=== PATIENT | male | born 1970 | race Caucasian/White ===

== ENCOUNTER 2022-01-17 15:17 | Inpatient (IN) ==
[2022-01-17] MEDS ORDERED: SODIUM CHLORIDE 0.9% 1000ML 1,000 ML IV STA (16:04)
--- NOTE | 2022-01-17 16:09 | Emergency Department Note ---
Impression & Plan LLQ abdominal pain, Diverticulitis, Colonic diverticular abscess, Leukocytosis ED Provider Note NAME: ALEM VIZCAINO AGE: 51 SEX: M : 1970 ARRIVES VIA: Walk-In INFORMANT: [Patient] ED PROVIDER(S): [Grzegorz Villalobos MD] CHIEF COMPLAINT: GI assessment HISTORY OF PRESENT ILLNESS: The patient is a 51-year-old male with Crohn's disease. He is currently on mesalamine. Patient has had a few bowel obstructions before that have always cleared without surgery. Over the weekend, he had more to eat than normal and began having some bloating and some left lower quadrant abdominal pain. He has since moved his bowels a little but still feels bloated and still has some mild left lower quadrant pain. He was referred to the ED for further evaluation for the possibility of a small bowel obstruction. There has been no fever, no cough or congestion or shortness of breath. No urinary complaints. REVIEW OF SYSTEMS: See HPI for pertinent positives and negatives. A total of ten systems were reviewed and were otherwise negative. PMHx/PSHx: See Below SOCIAL HISTORY: See Below. PHYSICAL EXAM: GENERAL: Patient is in no acute distress. HEENT: No acute trauma, normocephalic atraumatic, mucous membranes moist, no nasal congestion, no scleral icterus. NECK: No stridor, no adenopathy, no meningismus, trachea is midline. LUNGS: Clear to auscultation bilaterally, no wheeze, no rhonchi, breath sounds equal. HEART: Without murmurs gallops or rubs, regular rate and rhythm. ABDOMEN: Soft, mildly tender in the left lower quadrant, bowel sounds positive, no hernias, no peritonitis. EXTREMITIES: No cyanosis or edema, full range of motion of all the joints without pain or difficulty, no signs for acute trauma. NEUROLOGIC: Oriented x 3, no acute motor or sensory deficits, no focal weakness. SKIN: No rash, no jaundice, no diaphoresis. DIFFERENTIAL DIAGNOSIS: Appendicitis, testicular torsion, diverticulitis, UTI, obstruction, mesenteric ischemia, aortic pathology, inflammatory bowel disease, renal colic, PUD, pancreatitis, biliary pathology, hernia, volvulus, constipation, as well as other pathologies. EMERGENCY DEPARTMENT COURSE/PROCEDURES: MEDICAL DECISION MAKING: There is a mild leukocytosis which could be consistent with infection. A very mild anemia was noted. There was a normal platelet count. No renal failure or significant electrolyte abnormality. No concerning liver enzyme elevation. No evidence for pancreatitis. Abdominal and pelvis CT shows diverticulitis with a small diverticular abscess. No bowel obstruction. No free air. On exam, the patient was tender in the left lower quadrant, he was not toxic or febrile. The patient received IV saline, 1 L. He was given IV Cipro and IV Flagyl. He did not require anything for pain. I spoke with general surgery. Patient requires IV antibiotic therapy and observation. No emergent surgical intervention required. I spoke with the patient and case management. The on-call hospitalist was consulted. Past Med/Surg History Medical History Crohn's disease Social History Smoking Status: Former smoker Preferred Language: American Feels Safe at Home: Yes Allergies Allergies Allergy/AdvReac Type Severity Reaction Status Date / Time Penicillins Allergy ALL Verified 01/17/22 17:28 SIMILAR ANTIBIOTICS--HIVES Home Meds Home Medications Medication Instructions Recorded Confirmed ketoconazole 2 % shampoo 1 applic TOPICAL DIRECTED 01/17/22 01/17/22 mesalamine 1.2 gram tablet,delayed 2.4 g PO DAILY 01/17/22 01/17/22 release sodium chloride 5 % eye drops 1 drp OPHTHALMIC (EYE) DIRECTED 01/17/22 01/17/22 (Ismael 128) Results & Data (ED) Vital Signs Vital Signs - 24 hr 01/17/22 15:25 01/17/22 17:00 Temperature 36.6 C Temperature Source Temporal Artery Scan Pulse Rate 109 H Pulse Rate [Right Finger] 91 H Pulse Rhythm Regular Pulse Rhythm [Right Finger] Regular Pulse Strength Normal Pulse Strength [Right Finger] Normal Respiratory Rate 20 18 Respiratory Effort / Characteristics Non-Labored Spontaneous Non-Labored Respiratory Depth Normal Normal Respiratory Pattern Regular Regular Blood Pressure 162/144 H Blood Pressure [Right Arm] 119/80 Blood Pressure Mean 150 Blood Pressure Mean [Right Arm] 93 Blood Pressure Position Sitting Blood Pressure Position [Right Arm] Lying Pulse Oximetry 97 100 Oxygen Delivery Method Room Air Room Air Sepsis Recent Fever Within 48 Hours No Sepsis New/Unexplained Change in Mental Status No Sepsis Action Taken by Nursing No Action Required Home Medications Current Medication List: was personally reviewed by me Laboratory Data Attestation: I reviewed the patient's lab results. Result diagrams: 01/17/22 16:20 01/17/22 16:20 Lab Results 01/17/22 01/17/22 Range/Units 16:20 16:20 WBC 10.83 H (4.8-10.8) K/uL RBC 4.39 L (4.7-6.1) M/uL Hgb 13.1 L (14.0-18.0) g/dL Hct 39.5 L (42-52) % MCV 90.0 (80-100) fL MCH 29.8 (25-34) pg MCHC 33.2 (32-36) g/dL RDW Std Deviation 42.9 (36.4-46.3) fL RDW Coeff of Pao 13.0 (11.5-14.5) % Plt Count 358 (130-400) K/uL MPV 9.7 (7.4-10.4) fL Immature Gran % (Auto) 0.2 % Neut % (Auto) 75.2 % Lymph % (Auto) 13.1 % [place] % (Auto) 10.4 % Eos % (Auto) 0.8 % Baso % (Auto) 0.3 % Neut # (Auto) 8.14 H (1.4-6.5) K/uL Lymph # (Auto) 1.42 (1.2-3.4) K/uL [place] # (Auto) 1.13 H (0.11-0.59) K/uL Eos # (Auto) 0.09 (0-0.5) K/uL Baso # (Auto) 0.03 (0-0.2) K/uL Immature Gran # (Auto) 0.02 (0.00-0.02) K/uL Sodium 136 (136-145) mmol/L Potassium 3.6 (3.5-5.1) mmol/L Chloride 100 (98-107) mmol/L Carbon Dioxide 30 (21-32) mmol/L Anion Gap 6 (3-11) BUN 19 (6-23) mg/dl Creatinine 0.87 (0.6-1.4) mg/dl Est Cr Clr Drug Dosing 107.0 ml/min Est GFR ( Amer) 115.8 ml/min Est GFR (Non-Af Amer) 99.9 ml/min BUN/Creatinine Ratio 21.8 H (10-20) Glucose 110 H (70-99(Fasting)) mg/dl Calcium 9.3 (8.5-10.1) mg/dl Total Bilirubin 0.5 (0.2-1.0) mg/dl AST 16 (13-39) U/L ALT 17 (7-52) U/L Alkaline Phosphatase 55 (34-104) U/L Total Protein 8.0 (6.0-8.3) gm/dl Albumin 4.1 (3.4-5.0) gm/dl Globulin 3.9 (2.5-4.0) gm/dl Albumin/Globulin Ratio 1.1 (0.9-2) Lipase 18 (11-82) U/L Administered Medications Discontinued Medications Sodium Chloride (Nss 1000ml) 1,000 mls @ 999 mls/hr IV .Q1H1M STA Stop: 01/17/22 17:04 Last Infusion: 01/17/22 17:51 Dose: 0 mls/hr Documented by: [id number] Admin: 01/17/22 16:32 Dose: 999 mls/hr Documented by: [id number] Ciprofloxacin (Cipro / D5w) 400 mg in 200 mls @ 200 mls/hr IV NOW STA Stop: 01/17/22 18:40 Last Admin: 01/17/22 18:02 Dose: 200 mls/hr Documented by: [id number] Ioversol (Optiray 320 100ml) 95 ml IV ONCE ONE Stop: 01/17/22 17:16 Last Admin: 01/17/22 17:15 Dose: 95 ml Documented by: [id number] Metronidazole (Metronidazole 500 Mg Tab) 500 mg PO NOW STA Stop: 01/17/22 17:54 Last Admin: 01/17/22 18:02 Dose: 500 mg Documented by: [id number] Imaging Data Radiologist's Impression: Abdomen/Pelvis CT 01/17/22 16:04 CT abd pelvis IV con only CLINICAL HISTORY: llq pain, chrons, bloated TECHNIQUE: Helical axial images of the abdomen and pelvis were obtained and displayed. Automated dose lowering techniques and/or adjustment according to patient size were utilized for this exam. This exam was performed with intravenous contrast. CT DOSE: 373.08 mGy.cm COMPARISON: None available at the time of this dictation. FINDINGS: Lower chest: No acute abnormality Liver: Multiple hepatic cysts are seen. Gallbladder and biliary tree: Cholelithiasis is seen without evidence of cholecystitis. The common bile duct measures 17 mm. Pancreas: Unremarkable, no focal lesions. Spleen: Unremarkable. Adrenals: Unremarkable. Kidneys and ureters: Unremarkable. Bladder: Limited evaluation due to underdistention. Reproductive organs: Unremarkable. Bowel: Diverticulosis is seen. There is focal thickening and fat stranding in the lower descending colon and proximal sigmoid colon. There is an adjacent gas and fluid collection measuring approximately 25 x 17 mm. The appendix is normal. There is a small hiatal hernia. Lymph nodes Retroperitoneal: Unremarkable. Mesenteric: Unremarkable. Pelvic: Unremarkable. Peritoneum: Normal. Vessels: Unremarkable. Abdominal wall: Unremarkable. Bones: Degenerative changes in the visualized spine. IMPRESSION: 1. Findings are compatible with acute diverticulitis in the distal descending/proximal sigmoid colon. There is an adjacent gas and fluid collection which may represent a contained perforation and/or developing abscess. 2. Cholelithiasis. Biliary ductal dilation is seen. This may represent recently passed stone. If there is clinical concern for choledocholithiasis, MRCP can be performed. ACT 112: Negative or not required by law. Electronically signed by: Edin Lakhani M.D. 01/17/2022 5:36 PM Discharge Plan Visit Data Chief Complaint: GI Assessment Stated Complaint: BOWEL OBSTRUCTION, BLOATED ED Provider: Grzegorz Villalobos Discharge Problem: LLQ abdominal pain, Diverticulitis, Colonic diverticular abscess, Leukocytosis Patient Disposition: Admitted As Inpatient Condition: Fair Forms Stand Alone Forms: [facility] 3D Prescriptions Prescriptions: No Action sodium chloride [Ismael 128] 5 % Drops 1 drp OPHTHALMIC (EYE) DIRECTED RF: 0 ketoconazole 2 % shampoo 1 applic TOPICAL DIRECTED RF: 0 mesalamine 1.2 gram tablet,delayed release (DR/EC) 2.4 g PO DAILY RF: 0 Referrals Referrals: Park Donald [Primary Care Provider] -
[2022-01-17 16:33] LABS: Basophils # (auto) 0.03 K/uL (0-0.2); Basophils % (auto) 0.3 %; Eosinophils # (auto) 0.09 K/uL (0-0.5); Eosinophils % (auto) 0.8 %; Hematocrit (blood only) 39.5 % (42-52); Hemoglobin 13.1 g/dL (14.0-18.0); Immature Granulocytes # (auto) 0.02 K/uL (0.00-0.02); Immature Granulocytes % (auto) 0.2 %; Lymphocytes # (auto) 1.42 K/uL (1.2-3.4); Lymphocytes % (auto) 13.1 %; Mean Corpuscular Hemoglobin 29.8 pg (25-34); Mean Corpuscular Hgb Conc 33.2 g/dL (32-36); Mean Platelet Volume 9.7 fL (7.4-10.4); Monocytes # (auto) 1.13 K/uL (0.11-0.59); Monocytes % (auto) 10.4 %; Neutrophils # (auto) 8.14 K/uL (1.4-6.5); Neutrophils % (auto) 75.2 %; Platelet Count 358 K/uL (130-400); RDW Standard Deviation 42.9 fL (36.4-46.3); Red Blood Count 4.39 M/uL (4.7-6.1); White Blood Count 10.83 K/uL (4.8-10.8)
[2022-01-17 16:49] LABS: Albumin Globulin Ratio 1.1 (0.9-2); Albumin Level 4.1 gm/dl (3.4-5.0); BUN Creatinine Ratio 21.8 (10-20); Bilirubin,Total 0.5 mg/dl (0.2-1.0); Calcium 9.3 mg/dl (8.5-10.1); Est GFR (African American) 115.8 ml/min; Est GFR (Non-African American) 99.9 ml/min; Globulin 3.9 gm/dl (2.5-4.0); Potassium 3.6 mmol/L (3.5-5.1)
[2022-01-17] MEDS ORDERED: OPTIRAY 320 100ml IV ONE (17:15)
--- NOTE | 2022-01-17 17:38 | CT Scan Report ---
CT abd pelvis IV con only CLINICAL HISTORY: llq pain, chrons, bloated TECHNIQUE: Helical axial images of the abdomen and pelvis were obtained and displayed. Automated dose lowering techniques and/or adjustment according to patient size were utilized for this exam. This e xam was performed with intravenous contrast. CT DOSE: 373.08 mGy.cm COMPARISON: None available at the time of this dictation. FINDINGS: Lower chest: No acute abnormality Liver: Multiple hepatic cysts are seen. Gallbladder and biliary tree: Cholelithiasis is seen without evidence of cholecystitis. The common bi le duct measures 17 mm. Pancreas: Unremarkable, no focal lesions. Spleen: Unremarkable. Adrenals: Unremarkable. Kidneys and ureters: Unremarkable. Bladder: Limited evaluation due to underdistention. Reproductive organs: Unremarkable. Bowel: Diverticulosis is seen. There is focal thickening and fat stranding in the lower descending co lucas and proximal sigmoid colon. There is an adjacent gas and fluid collection measuring approximately 25 x 17 mm. The appendix is normal. There is a small hiatal hernia. Lymph nodes Retroperitoneal: Unremarkable. Mesenteric: Unremarkable. Pelvic: Unremarkable. Peritoneum: Normal. Vessels: Unremarkable. Abdominal wall: Unremarkable. Bones: Degenerative changes in the visualized spine. IMPRESSION: 1. Findings are compatible with acute diverticulitis in the distal descending/proximal sigmoid colon . There is an adjacent gas and fluid collection which may represent a contained perforation and/or de veloping abscess. 2. Cholelithiasis. Biliary ductal dilation is seen. This may represent recently passed stone. If the re is clinical concern for choledocholithiasis, MRCP can be performed. ACT 112: Negative or not required by law. Electronically signed by: Edin Lakhani M.D. 01/17/2022 5:36 PM
[2022-01-17] MEDS ORDERED: CIPROFLOXACIN / D5W 400 MG/200 ML BAG IV STA (17:41)
[2022-01-17] MEDS ORDERED: metroNIDAZOLE 500 MG TAB PO STA (17:53)
--- NOTE | 2022-01-17 19:26 | History & Physical Report ---
Date of Service January 17, 2022 Assessment & Plan (1) Diverticulitis: Plan: CT a/p on admission showed acute diverticulitis in the lower descending and sigmoid colon with possible contained perforation and/or developing abscess. - Clear liquid diet - Cipro/Flagyl as he has a penicillin allergy - General surgery consulted in ED - Conservative care for now (2) Crohn's disease: Plan: Long history, well-controlled. Follow with [facility]. - GI consulted - For now, continue mesalamine - Zofran PRN (3) DVT prophylaxis: Plan: SCDs - Low DVT risk per admission calculator History of Present Illness Primary Care Provider: Park Donald 51yo M w/ hx of Crohn's who presents to the ER with acute diverticulitis. Has had Crohn's diagnosis for >10 years, controlled with mesalamine and diet. About 1 1/2 years ago, he had several episodes of SBO that were all treated conservatively with low fiber diet and just watching what he ate. He was doing well until Saturday when they had family over and he had a large amount of food. He reports he woke up early in the morning with pain in the LLQ. The pain was associated with a "tight" or bloating sensation. He got up, walked around, and tried to massage the area which all helped slightly. He then had several bowel movements over the course of the day. He reports they ranged from solid/normal to fairly liquidy bowel movements. He denies any hematochezia or melena. No emesis. Minimal nausea. He also notes some subjective fevers/chills at home, but no temperature. He denies any chest pain, shortness of breath, changes in sensation/strength, denies any urinary changes. Allergies Allergy/AdvReac Type Severity Reaction Status Date / Time Penicillins Allergy ALL Verified 01/17/22 17:28 SIMILAR ANTIBIOTICS--HIVES Home Medications Medication Instructions Recorded Confirmed Type ketoconazole 2 % shampoo 1 applic TOPICAL DIRECTED 01/17/22 01/17/22 History mesalamine 1.2 gram tablet,delayed 2.4 g PO DAILY 01/17/22 01/17/22 History release sodium chloride 5 % eye drops 1 drp OPHTHALMIC (EYE) DIRECTED 01/17/22 History (Ismael 128) Past Med/Surg History Medical History (Updated 01/17/22 @ 19:35 by Morgan Dozier MD) Crohn's disease Family History (Updated 01/17/22 @ 19:23 by Morgan Dozier MD) Brother Crohn's disease Social History Smoking Status: Former smoker Preferred Language: Niuean Feels Safe at Home: Yes Review of Systems Review of Systems: All systems reviewed & are unremarkable except as noted in HPI & below Physical Exam Constitutional: WD/WN, vitals as above Eyes: EOM intact bilaterally; no conjunctival abnormality ENMT: external ear and nose normal, oropharynx normal Neck: trachea midline, no thyromegaly normal visual inspection Respiratory: normal respiratory effort, lungs clear to auscultation no respiratory distress Cardiovascular: RRR, no murmur, no edema Gastrointestinal (Abdomen): Inspection/Auscultation: abdomen normal to inspection; abdomen not distended Percussion/Palpation: + abdomen tender (LLQ) and abdomen soft; no guarding and abdomen not rigid Musculoskeletal: no cyanosis or clubbing, extremities motor strength 5/5 Skin: no rashes, warm and dry Neurologic: moves all extremities and awake Psychiatric: Orientation: alert, oriented to person and cooperative Results & Data Results & Data ([facility]) Vital Signs (Past 12 Hours) Vital Signs Temp Pulse Pulse Resp BP BP Pulse Ox 01/17/22 17:00 91 H 18 119/80 100 01/17/22 15:25 36.6 C 109 H 20 162/144 H 97 Code Status & VTE Plan VTE Prophylaxis Plan VTE Prophylaxis will be ordered: Yes PG Care Time/CCT Total # of Minutes Spent Total Time Spent with Patient: Total time spent is greater than 50% in coordination of care (as documented) at patient's floor/unit and/or counseling patient: Coding Level of Care Code 57213 Initial Inpt Care Lvl 3 Diagnoses Diverticulitis K57.92 Crohn's disease K50.90 DVT prophylaxis Z29.9
--- NOTE | 2022-01-17 19:30 | Surgery Consultation ---
Date of Consultation January 17, 2022 Assessment & Plan (1) Diverticulitis: Patient has been admitted on the medical service and we recommend proceeding as follows: Provide analgesics Provide antiemetics Implement bowel rest (the patient may have an occasional ice chip for comfort) Hydration measures with IV fluids to be employed Continue antibiotics. He is already received ciprofloxacin as well as Flagyl which should continue We will monitor the patient clinically and reassess him each day and as he clinically improves consideration will be given to advancing his diet beginning with clear liquids Was discussed with the patient that would be preferable to avoid an operation in the setting of acute diverticulitis which may require temporary colostomy and therefore we will continue with conservative measures outlined above History of Present Illness Reason for Consultation: Diverticulitis History of Present Illness This is a 51-year-old male who presented to [facility] emergency department secondary abdominal pain. He notes that the pain is located primarily in the left lower quadrant of his abdomen without radiation or modifying factors. He denies any nausea or vomiting. He denies any fevers, shakes, chills. Patient notes that he has never had a bout of diverticulitis that he knows of however he has had similar abdominal pain in the past but this was attributed to Crohn's disease which she has. Concerning the patient's Crohn's disease the patient says he does take mesalamine which readily controls this illness. He says that he has never had surgeries on his abdomen. He does note that he has had multiple endoscopies with his most recent colonoscopy being approximately 1 year ago. To the best of the patient's knowledge there is no significant pathology noted on this study. In the emergency department the patient had labs and imaging which I independently reviewed. A CT scan of the abdomen pelvis showed findings consistent with acute diverticulitis involving the distal descending colon and proximal sigmoid colon there is some adjacent gas and fluid noted which was felt to represent a contained perforation. Is also noted to mention that the patient was noted to have gallstones. Labs include a CBC her white blood cell count was 10.8. Hemoglobin and hematocrit were 13.1 and 39.5. Platelet count was noted to be normal. Chemistry profile showed sodium, potassium, BUN, and creatinine were all noted be normal. There is no significant elevation of bilirubin, alkaline phosphatase, or transaminases. His lipase was also noted to be normal. At the time of my interview he was resting comfortably in bed and he was in no distress Allergies Allergy/AdvReac Type Severity Reaction Status Date / Time Penicillins Allergy ALL Verified 01/17/22 17:28 SIMILAR ANTIBIOTICS--HIVES Home Medications Medication Instructions Recorded Confirmed Type ketoconazole 2 % shampoo 1 applic TOPICAL DIRECTED 01/17/22 01/17/22 History mesalamine 1.2 gram tablet,delayed 2.4 g PO DAILY 01/17/22 01/17/22 History release sodium chloride 5 % eye drops 1 drp OPHTHALMIC (EYE) DIRECTED 01/17/22 01/17/22 History (Ismael 128) Patient History Medical History Crohn's disease Family History Brother Crohn's disease Social History Smoking Status: Former smoker Preferred Language: Lithuanian Feels Safe at Home: Yes Review of Systems Constitutional: no fever and no chills Eyes: no diplopia Ear, Nose, Mouth, Throat: no ear pain Respiratory: no cough and no dyspnea Cardiovascular: no chest pain Gastrointestinal: + abdominal pain; no nausea and no vomiting Genitourinary: no dysuria Musculoskeletal: no back pain Integumentary: no rash Neurologic: no localized weakness Physical Exam Constitutional: WD/WN, vitals as above Eyes: no conjunctival abnormality ENMT: Ears: no hearing impairment and no external ear abnormality Mouth: no oropharynx abnormality Neck: trachea midline Respiratory: normal respiratory effort; no respiratory distress and no labored breathing Cardiovascular: Rate/Rhythm: regular rate and regular rhythm Gastrointestinal (Abdomen): Abdomen is soft and nondistended. Bowel sounds are present. Patient did have some minor pain with palpation in the left lower quadrant. No rebound tenderness or guarding was noted Musculoskeletal: No calf tenderness Skin: no rashes Neurologic: moves all extremities Psychiatric: A+Ox3, euthymic affect Results & Data ([facility]) Vital Signs (Past 12 Hours) Vital Signs Temp Pulse Pulse Resp BP BP Pulse Ox 01/17/22 17:00 91 H 18 119/80 100 01/17/22 15:25 36.6 C 109 H 20 162/144 H 97 PG Care Time/CCT Total # of Minutes Spent Total Time Spent with Patient: Total time spent is greater than 50% in coordination of care (as documented) at patient's floor/unit and/or counseling patient: Coding Level of Care Code 99717 Inpt Consult Level 5 Diagnoses Diverticulitis K57.92
[2022-01-17] MEDS ORDERED: ONDANSETRON INJ 2 MG/ML 2 ML VIAL IV PRN (21:29)
[2022-01-17] MEDS ORDERED: ACETAMINOPHEN 325 MG TAB PO PRN (21:29)
[2022-01-17] MEDS: SODIUM CHLORIDE 0.9% 1000ML 1,000 ML IV SCH (22:21)
[2022-01-17] MEDS: metroNIDAZOLE 500 MG TAB PO SCH (23:54)
[2022-01-18] MEDS: CIPROFLOXACIN / D5W 400 MG/200 ML BAG IV SCH ×2 (05:35→18:02)
--- NOTE | 2022-01-18 07:27 | Surgery Progress Note ---
Date of Service January 18, 2022 Assessment & Plan (1) Diverticulitis: Plan: Continue with ice only Possible clear liquids tomorrow-advancing diet very slowly Continue IV antibiotics Rescan if concern or patient worsening Admission and Anticipated Discharge Date Admission Date: January 17, 2022 Subjective Patient sitting in bed with his headphones on and his laptop Appears to be normal Vital signs stable Some mild abdominal pain Review of Systems Review of Systems: All systems reviewed & are unremarkable except as noted in HPI & below Physical Exam Physical Exam: Awake and alert No distress Abdomen is soft and nondistended Results & Data ([facility]) Vital Signs (Past 12 Hours) Vital Signs Temp Pulse Resp BP Pulse Ox 01/17/22 21:30 37.0 C 98 H 14 129/82 98 PG Care Time/CCT Total # of Minutes Spent Total Time Spent with Patient: Total time spent is greater than 50% in coordination of care (as documented) at patient's floor/unit and/or counseling patient: Coding Level of Care Code 92417 Subseq Hosp Care Lvl 2 Diagnoses Diverticulitis K57.92
[2022-01-18] MEDS: metroNIDAZOLE 500 MG TAB PO SCH ×2 (08:40→15:35)
[2022-01-18 08:51] LABS: Hematocrit (blood only) 37.1 % (42-52); Hemoglobin 12.2 g/dL (14.0-18.0); Mean Corpuscular Hemoglobin 29.8 pg (25-34); Mean Corpuscular Hgb Conc 32.9 g/dL (32-36); Mean Corpuscular Volume 90.5 fL (80-100); Mean Platelet Volume 9.4 fL (7.4-10.4); Platelet Count 357 K/uL (130-400); RDW Coefficient of Variation 13.4 % (11.5-14.5); RDW Standard Deviation 44.4 fL (36.4-46.3); White Blood Count 7.22 K/uL (4.8-10.8)
[2022-01-18 09:13] LABS: BUN Creatinine Ratio 16.7 (10-20); Calcium 8.9 mg/dl (8.5-10.1); Creatinine Clr Calc Pharmacy 110.8 ml/min; Est GFR (African American) 117.5 ml/min; Est GFR (Non-African American) 101.4 ml/min; Magnesium 1.9 mg/dl (1.7-2.4); Potassium 3.3 mmol/L (3.5-5.1)
[2022-01-18] MEDS: SODIUM CHLORIDE 0.9% 1000ML 1,000 ML IV SCH ×2 (09:57→20:26)
--- NOTE | 2022-01-18 11:27 | Hospitalist Progress Note ---
Date of Service January 18, 2022 Assessment & Plan (1) Diverticulitis: Plan: 51yo male with a history of Crohn's and multiple episodes of SBO presents with a four-day history of LLQ abdominal pain, nausea, and bloating, with imaging findings consistent with diverticulitis. Diverticulitis CT abdomen/pelvis consistent with acute diverticulitis in the distal descending/proximal sigmoid colon, with adjacent gas and fluid collection which may represent a contained perforation and/or developing abscess General surgery consulted, no indication for surgical intervention at this time Continue cipro/flagyl Diet advancement: ice chips at this time, will consider slow diet advancement as tolerated Low threshold for reimaging if patient worsens clinically Continue APAP prn pain, zofran prn nausea, NSS@80mL/hr Crohn's Mesalamine held on admission GI consulted, appreciate recommendations with optimizing patient's Crohn's med regimen FEN: ice chips, slow diet advancement as tolerated, NSS@80mL/hr Code status: full code DVT ppx: SCDs Held home meds: mesalamine Consults: general surgery, gastroenterology PT/OT: not indicated Case management: following Dispo: med/surg Admission and Anticipated Discharge Date Admission Date: January 17, 2022 Supervising Physician Co-Signing Physician Notes Patient seen and examined with PGY-2 Dr. Strickland. Agree with history, exam findings, assessment and plan of care. In brief, Mr. Morales is a 51 year old with Crohn's disease admitted acute diverticulitis. CT on admission showed diverticulitis in the lower descending and sigmoid colon with possible microperforation and/or developing abscess. Overall, abdominal pain is "ok". Currently NPO with ice chips. If continues to do well, can advance to clears tomorrow. Continue cipro, flagyl. Appreciate GI recommendations. Crohn's seems to be stable. Continue mesalamine. GI consulted by admitting physician. Dispo: pending clinical improvement. Subjective Patient seen and evaluated at bedside this morning. This morning, patient feels well overall, noting 3/10 LLQ pain which has improved significantly since admission, when it was about an 8/10. Last BM was yesterday and was loose but without blood. Nausea from yesterday has resolved. Has had some ice chips today but has not started advancing his diet. No new symptoms or concerns today. Denies headache, CP, SOB, or other symptoms. Physical Exam Physical Exam: Constitutional: well-appearing, no acute distress CV: regular rhythm, no murmur appreciated, extremities well-perfused, no LE edema Resp: CTABL, no wheezes/rales/rhonchi appreciated, no increased work of breathing GI: soft, nondistended, mild LLQ tenderness appreciated, other quadrants nontender, BS present Neuro: alert, oriented, no focal neurologic deficit appreciated Results & Data Results & Data ([facility]) Vital Signs (Past 12 Hours) Vital Signs Temp Pulse Resp BP Pulse Ox 01/18/22 08:13 36.5 C 83 16 128/82 98 Resident Activity Tracking Resident Involvement: Resident Care Provided Care Provided: Adult Hospital Medicine
--- NOTE | 2022-01-18 16:49 | Gastrointestinal Consultation ---
Date of Consultation January 18, 2022 Assessment & Plan (1) Diverticulitis: Continue abx and surgery if worsens crohns disease---as long as he is allowed to take po meds he should take his mesalamine. The mesalamine is not an immunosuppressive so does not need to be held during infections. His crohns is stable and he does not need escalation of therapy. History of Present Illness Reason for Consultation: diverticulitis, crohns disease Attending Physician: Gordy Guajardo DO History of Present Illness cc abd pain HPI Pt with ileocolonic crohns disease since 2008 stable on mesalamine with most recent colonoscopy 02/09/21 to [facility] showing diverticulosis and internal hemorrhoids. Pt with history of bowel obstruction in the past. Pt presents with abd pain over several days with altered bowels and bloating. Pain seemed worse and more localizing than previous attacks. Pain in LLQ. Pt told by our office yesterday to go to ER. CT showed sigmoid diverticulits with walled off perforation vs abscess. Surgery consulted in case needs acute surgery but othewise on abx to treat this. Allergies Allergy/AdvReac Type Severity Reaction Status Date / Time Penicillins Allergy ALL Verified 01/17/22 17:28 SIMILAR ANTIBIOTICS--HIVES Home Medications Medication Instructions Recorded Confirmed Type ketoconazole 2 % shampoo 1 applic TOPICAL DIRECTED 01/17/22 01/17/22 History mesalamine 1.2 gram tablet,delayed 2.4 g PO DAILY 01/17/22 01/17/22 History release sodium chloride 5 % eye drops 1 drp OPHTHALMIC (EYE) DIRECTED 01/17/22 01/17/22 History (Ismael 128) Patient History Medical History Crohn's disease Surgical History (Updated 01/17/22 @ 21:38 by Vidhi Perkins RN) H/O: vasectomy Family History Brother Crohn's disease Social History Smoking Status: Never smoker Hx Alcohol Use: Yes Alcohol type: beer, wine and hard liquor Hx Substance Use: No Preferred Language: [place] Required: No Beliefs That Will Affect Care: None Current Living Situation: Spouse Feels Safe at Home: Yes Assistive Devices: None Review of Systems Review of Systems: All systems reviewed & are unremarkable except as noted in HPI & below Physical Exam Constitutional: WD/WN, vitals as above ENMT: Ears: no hearing impairment Nose: no external nose abnormality Neck: normal visual inspection and trachea midline Respiratory: normal respiratory effort, lungs clear to auscultation Cardiovascular: RRR, no murmur, no edema Gastrointestinal (Abdomen): normal bowel sounds, soft, nontender, no hepatosplenomegaly Results & Data ([facility]) Vital Signs (Past 12 Hours) Vital Signs Temp Pulse Resp BP Pulse Ox 01/18/22 15:11 37.5 C 90 16 117/73 97 01/18/22 08:13 36.5 C 83 16 128/82 98
[2022-01-19] MEDS: metroNIDAZOLE 500 MG TAB PO SCH ×4 (00:31→23:45)
[2022-01-19] MEDS: CIPROFLOXACIN / D5W 400 MG/200 ML BAG IV SCH ×2 (05:28→18:20)
--- NOTE | 2022-01-19 07:18 | Hospitalist Progress Note ---
Date of Service January 19, 2022 Assessment & Plan (1) Diverticulitis: Plan: 51yo male with a history of Crohn's and multiple episodes of SBO presents with a four-day history of LLQ abdominal pain, nausea, and bloating, with imaging findings consistent with diverticulitis. Diverticulitis: Presented to the ER with worsening abdominal pain, N/V. CT abdomen/pelvis showed acute distal descending/proximal sigmoid diverticulitis, with adjacent gas and fluid collection (contained perforation vs. developing abscess). Continue Cipro/Flagyl. Diet advancement: will advance diet to clear liquids for dinner with slow dietary advancement as tolerated. Continue NSS at 80cc/hr. Low threshold for reimaging if patient worsens clinically. Tylenol as needed for pain, Zofran as needed for nausea. Crohn's disease: GI consulted, appreciate recommendations with optimizing patient's Crohn's med regimen. Continue mesalamine. Code Status: FULL CODE FEN: clear liquid diet at dinner; NSS at 80cc/hr DVT ppx: SCDs; low risk Dispo: Med/Surg Admission and Anticipated Discharge Date Admission Date: January 17, 2022 Supervising Physician Co-Signing Physician Notes Attending attestation Pt seen and examined in concert with Dr. Butler. In agreement with the documented findings as noted in the resident documentation with any exceptions or additions as noted here. Significantly improved abdominal pain with slight residual in the LLQ. Appetite has returned and is excited for clears in the evening. On examination, S1/S2 nl RRR no MCG. CTAB. Abd NT/ND BS+ve Diverticulitis - continue cipro/flagyl, IV hydration and slow advance of diet with repeat imaging with any worsening pain/sx Crohn's disease - GI consultation - continue mesalamine Else see resident documentation as noted. Subjective Patient reports no acute events overnight. He denies having a BM since admission. He is feeling a bit hungry, and reports that his pain continues to decrease. Review of Systems Review of Systems: All systems reviewed & are unremarkable except as noted in HPI & below Constitutional: no fever, no chills and no malaise Respiratory: no cough and no dyspnea Cardiovascular: no chest pain, no palpitations and no edema Gastrointestinal: + abdominal pain; no constipation and no diarrhea/loose stools Physical Exam Constitutional: WD/WN, vitals as above Respiratory: normal respiratory effort, lungs clear to auscultation Cardiovascular: RRR, no murmur, no edema Gastrointestinal (Abdomen): Inspection/Auscultation: abdomen normal to inspection; abdomen not distended Percussion/Palpation: + abdomen tender (LLQ, mild) and abdomen soft; no guarding Skin: no rashes, warm and dry Psychiatric: A+Ox3, euthymic affect Results & Data Results & Data ([facility]) Vital Signs (Past 12 Hours) Vital Signs Temp Pulse Resp BP Pulse Ox 01/18/22 22:55 37.1 C 80 16 108/69 95 Resident Activity Tracking Resident Involvement: Resident Care Provided Care Provided: Adult Hospital Medicine
--- NOTE | 2022-01-19 08:03 | Surgery Progress Note ---
Date of Service January 19, 2022 Assessment & Plan (1) Colonic diverticular abscess: Plan: Continue with ice only today Possible clear liquids tomorrow Advance diet slowly Continue IV antibiotics Rescan if patient worsens or concern Dr. Dozier is covering over the weekend Admission and Anticipated Discharge Date Admission Date: January 17, 2022 Subjective Awake and alert Vital signs stable Feels improved this morning Review of Systems Review of Systems: All systems reviewed & are unremarkable except as noted in HPI & below Physical Exam Physical Exam: Awake and alert Abdomen is soft with very minimal tenderness Results & Data ([facility]) Vital Signs (Past 12 Hours) Vital Signs Temp Pulse Resp BP Pulse Ox 01/18/22 22:55 37.1 C 80 16 108/69 95 PG Care Time/CCT Total # of Minutes Spent Total Time Spent with Patient: Total time spent is greater than 50% in coordination of care (as documented) at patient's floor/unit and/or counseling patient: Coding Level of Care Code 26725 Subseq Hosp Care Lvl 2 Diagnoses Colonic diverticular abscess K57.20
[2022-01-19 08:09] LABS: Basophils # (auto) 0.07 K/uL (0-0.2); Basophils % (auto) 1.1 %; Eosinophils # (auto) 0.15 K/uL (0-0.5); Eosinophils % (auto) 2.3 %; Hematocrit (blood only) 34.1 % (42-52); Hemoglobin 11.1 g/dL (14.0-18.0); Immature Granulocytes # (auto) 0.04 K/uL (0.00-0.02); Immature Granulocytes % (auto) 0.6 %; Lymphocytes # (auto) 1.58 K/uL (1.2-3.4); Lymphocytes % (auto) 24.5 %; Mean Corpuscular Hemoglobin 29.2 pg (25-34); Mean Corpuscular Hgb Conc 32.6 g/dL (32-36); Mean Corpuscular Volume 89.7 fL (80-100); Mean Platelet Volume 8.9 fL (7.4-10.4); Monocytes # (auto) 0.54 K/uL (0.11-0.59); Monocytes % (auto) 8.4 %; Neutrophils # (auto) 4.06 K/uL (1.4-6.5); Neutrophils % (auto) 63.1 %; Platelet Count 285 K/uL (130-400); RDW Coefficient of Variation 13.1 % (11.5-14.5); White Blood Count 6.44 K/uL (4.8-10.8)
[2022-01-19 08:35] LABS: BUN Creatinine Ratio 22.4 (10-20); Calcium 8.4 mg/dl (8.5-10.1); Creatinine Clr Calc Pharmacy 122.5 ml/min; Est GFR (African American) 122.4 ml/min; Est GFR (Non-African American) 105.6 ml/min; Potassium 3.8 mmol/L (3.5-5.1)
[2022-01-19] MEDS: MESALAMINE 1.2 GM PO SCH (08:49)
[2022-01-19] MEDS: SODIUM CHLORIDE 0.9% 1000ML 1,000 ML IV SCH ×2 (08:49→21:55)
--- NOTE | 2022-01-19 08:53 | Gastroenterology Progress Note ---
Date of Service January 19, 2022 Assessment & Plan (1) Crohn's disease: Plan: Diverticulitis - Continue abx and surgery if worsens. Will follow-up as outpatient with colonoscopy in 6-8 weeks. crohns disease---as long as he is allowed to take po meds he should take his mesalamine. The mesalamine is not an immunosuppressive so does not need to be held during infections. His Crohn's is stable and he does not need escalation of therapy. Refill sent to patient outpatient pharmacy to facilitate outpatient care. Will sign off on patient case at this time and follow-up as outpatient. Please reconsult GI if needed. Patient case reviewed with Dr. Kaur. Please refer to supervising physician addendum for further recommendations. I have spent 20 minutes of discrete time performing the activities of this visit which include but are not limited to review of the medical record, obtaining a history, physical exam, and entering information in the electronic record. (2) Diverticulitis: Admission and Anticipated Discharge Date Admission Date: January 17, 2022 Supervising Physician Co-Signing Physician Notes I have seen and examined the patient. I agree with note above by JEANNETTE Zheng except as noted below. HPI Pt states abd pain much improved. PE Abdomen pos bs, soft, no guarding nor rebound. A/P diverticulitis--improving, continue abx crohns stabel on mesalamine Recommend completing abx course for diverticulitis. Would repeat CT as outpt to document resolution then repeat colonoscopy 6-8 weeks. Will sign off. Please call for further questions. As the supervising physician, I , Sandoval Kaur MD have spent minutes of discrete time performing the activities of this visit which include but not limited to review of the medical records, obtaining a history, physical exam and entering information in the electronic record. JEANNETTE Zheng has reported spending 20 minutes of discrete time with the activities of this visit. Subjective On exam/interview today, the patient reports that he has some mild left lower quadrant discomfort with palpation but no pain at rest. Denies any nausea or vomiting. Reports his last bowel movement was Saturday morning. Denies melena or hematochezia. Overall is feeling significantly improved and with symptom onset. Request refill of mesalamine with history of Crohn's disease. Patient follows with the outpatient GI office with history of Crohn's disease diagnosed 10 to 15 years ago. Reports symptoms have began even during college but no diagnosis pursued at that time. Current treatment mesalamine. Has always been on mesalamine with no former treatments. He has a family history of Crohn's disease in his brother who has required multiple surgical resections due to his Crohn's disease. No history of surgical history for Crohn's although has history of recurrent small bowel obstruction type symptoms. Reports extraintestinal manifestations with joint pain. Last colonoscopy 09/2020 (per patient report). Lifetime non-smoker. Reports 1 alcoholic beverage per day. Denies recreational drug use including marijuana. 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 He is with 3 children ages 17, 15, 13. Review of Systems Review of Systems: All systems reviewed & are unremarkable except as noted in Subjective Physical Exam Constitutional: WD/WN, vitals as above ENMT: Ears: no hearing impairment Nose: no external nose abnormality Neck: normal visual inspection and trachea midline Respiratory: normal respiratory effort, lungs clear to auscultation Cardiovascular: RRR, no murmur, no edema Gastrointestinal (Abdomen): normal bowel sounds, soft, nontender, no hepatosplenomegaly Results & Data ([facility]) Vital Signs (Past 12 Hours) Vital Signs Temp Pulse Resp BP Pulse Ox 01/19/22 08:37 36.9 C 79 16 117/70 97 01/18/22 22:55 37.1 C 80 16 108/69 95 Laboratory Results Laboratory Results - last 24 hr 01/18/22 01/18/22 01/19/22 08:12 08:12 07:49 WBC 7.22 6.44 RBC 4.10 L 3.80 L Hgb 12.2 L 11.1 L Hct 37.1 L 34.1 L MCV 90.5 89.7 MCH 29.8 29.2 MCHC 32.9 32.6 RDW Std Deviation 44.4 43.0 RDW Coeff of Pao 13.4 13.1 Plt Count 357 285 MPV 9.4 8.9 Immature Gran % (Auto) 0.6 Neut % (Auto) 63.1 Lymph % (Auto) 24.5 [place] % (Auto) 8.4 Eos % (Auto) 2.3 Baso % (Auto) 1.1 Neut # (Auto) 4.06 Lymph # (Auto) 1.58 [place] # (Auto) 0.54 Eos # (Auto) 0.15 Baso # (Auto) 0.07 Immature Gran # (Auto) 0.04 H Sodium 138 Potassium 3.3 L Chloride 103 Carbon Dioxide 28 Anion Gap 7 BUN 14 Creatinine 0.84 Est Cr Clr Drug Dosing 110.8 Est GFR ( Amer) 117.5 Est GFR (Non-Af Amer) 101.4 BUN/Creatinine Ratio 16.7 Glucose 92 Calcium 8.9 Magnesium 1.9 01/19/22 07:49 WBC RBC Hgb Hct MCV MCH MCHC RDW Std Deviation RDW Coeff of Pao Plt Count MPV Immature Gran % (Auto) Neut % (Auto) Lymph % (Auto) [place] % (Auto) Eos % (Auto) Baso % (Auto) Neut # (Auto) Lymph # (Auto) [place] # (Auto) Eos # (Auto) Baso # (Auto) Immature Gran # (Auto) Sodium 139 Potassium 3.8 Chloride 107 Carbon Dioxide 25 Anion Gap 7 BUN 17 Creatinine 0.76 Est Cr Clr Drug Dosing 122.5 Est GFR ( Amer) 122.4 Est GFR (Non-Af Amer) 105.6 BUN/Creatinine Ratio 22.4 H Glucose 77 Calcium 8.4 L Magnesium
[2022-01-20] MEDS: CIPROFLOXACIN / D5W 400 MG/200 ML BAG IV SCH ×2 (06:17→17:38)
[2022-01-20 07:10] LABS: Basophils # (auto) 0.02 K/uL (0-0.2); Basophils % (auto) 0.3 %; Eosinophils # (auto) 0.18 K/uL (0-0.5); Eosinophils % (auto) 2.3 %; Hematocrit (blood only) 34.5 % (42-52); Hemoglobin 11.4 g/dL (14.0-18.0); Immature Granulocytes # (auto) 0.07 K/uL (0.00-0.02); Immature Granulocytes % (auto) 0.9 %; Lymphocytes # (auto) 1.24 K/uL (1.2-3.4); Lymphocytes % (auto) 15.5 %; Mean Corpuscular Hemoglobin 29.8 pg (25-34); Mean Corpuscular Volume 90.3 fL (80-100); Monocytes # (auto) 0.61 K/uL (0.11-0.59); Monocytes % (auto) 7.6 %; Neutrophils # (auto) 5.86 K/uL (1.4-6.5); Neutrophils % (auto) 73.4 %; Platelet Count 309 K/uL (130-400); RDW Standard Deviation 42.5 fL (36.4-46.3); Red Blood Count 3.82 M/uL (4.7-6.1); White Blood Count 7.98 K/uL (4.8-10.8)
[2022-01-20 07:22] LABS: BUN Creatinine Ratio 12.5 (10-20); Calcium 8.5 mg/dl (8.5-10.1); Creatinine Clr Calc Pharmacy 116.3 ml/min; Est GFR (African American) 119.9 ml/min; Est GFR (Non-African American) 103.4 ml/min; Potassium 3.8 mmol/L (3.5-5.1)
--- NOTE | 2022-01-20 07:36 | Hospitalist Progress Note ---
Date of Service January 20, 2022 Assessment & Plan (1) Diverticulitis: Plan: 51yo male with a history of Crohn's and multiple episodes of SBO presents with a four-day history of LLQ abdominal pain, nausea, and bloating, with imaging findings consistent with diverticulitis. Diverticulitis: Presented to the ER with worsening abdominal pain, N/V. CT abdomen/pelvis showed acute distal descending/proximal sigmoid diverticulitis, with adjacent gas and fluid collection (contained perforation vs. developing abscess). Continue Cipro/Flagyl, currently on day 4 of antibiotic therapy. Continue through to 01/26 for 10 days of treatment. Full liquid diet this morning with advance diet slowly as tolerated. Low threshold for reimaging if patient worsens clinically. Tylenol as needed for pain, Zofran as needed for nausea. Crohn's disease: Continue mesalamine. Code Status: FULL CODE FEN: full liquid diet DVT ppx: SCDs with ambulation encouraged; low risk of DVT Dispo: Med/Surg Admission and Anticipated Discharge Date Admission Date: January 17, 2022 Supervising Physician Co-Signing Physician Notes Attending attestation Pt seen and examined in concert with Dr. Butler. In agreement with the documented findings as noted in the resident documentation with any exceptions or additions as noted here. Minimal abdominal pain reported and tolerating clears without issue. Reports no n/v/d/c presently On examination, S1/S2 nl RRR no MCG. CTAB. Abd NT/ND BS+ve Diverticulitis - continue cipro/flagyl, IV hydration and slow advance of diet with repeat imaging with any worsening pain/sx Crohn's disease - continue mesalamine Else see resident documentation as noted. Subjective Overnight patient reports some mild abdominal pain after his clear liquid dinner, however it resolved without needing to use medications. He denies nausea or vomiting. Review of Systems Constitutional: no fever, no chills and no malaise Respiratory: no cough and no dyspnea Cardiovascular: no chest pain, no palpitations and no edema Gastrointestinal: + abdominal pain (with eating); no constipation and no diarrhea/loose stools Physical Exam Constitutional: WD/WN, vitals as above Respiratory: normal respiratory effort, lungs clear to auscultation Cardiovascular: RRR, no murmur, no edema Gastrointestinal (Abdomen): Inspection/Auscultation: abdomen normal to inspection; abdomen not distended Percussion/Palpation: abdomen soft; abdomen nontender and no guarding Skin: no rashes, warm and dry Psychiatric: A+Ox3, euthymic affect Results & Data Results & Data ([facility]) Vital Signs (Past 12 Hours) Vital Signs Temp Pulse Resp BP Pulse Ox 01/19/22 22:46 36.8 C 79 20 131/80 98 Resident Activity Tracking Resident Involvement: Resident Care Provided Care Provided: Adult Hospital Medicine
[2022-01-20] MEDS: metroNIDAZOLE 500 MG TAB PO SCH ×2 (08:34→16:40)
[2022-01-20] MEDS: MESALAMINE 1.2 GM PO SCH (08:34)
--- NOTE | 2022-01-20 10:15 | Surgery Progress Note ---
Date of Service January 20, 2022 Assessment & Plan (1) Colonic diverticular abscess: Plan: We will advance to full liquids Continue IV antibiotics Rescan if patient worsens or concern Possible home Saturday or Saturday Admission and Anticipated Discharge Date Admission Date: January 17, 2022 Subjective Feeling well this morning. Minimal pain. Tolerating clear liquids. No nausea or vomiting. No fevers. Physical Exam Physical Exam: Awake and alert Abdomen is soft with very minimal tenderness Constitutional: WD/WN, vitals as above Skin: no rashes Neurologic: moves all extremities Psychiatric: A+Ox3, euthymic affect Results & Data ([facility]) Vital Signs (Past 12 Hours) Vital Signs Temp Pulse Resp BP Pulse Ox 01/20/22 07:51 37.1 C 79 18 124/80 98 01/19/22 22:46 36.8 C 79 20 131/80 98 Laboratory Results 01/20/22 01/20/22 01/20/22 Range/Units 06:40 06:40 06:40 WBC 7.98 (4.8-10.8) K/uL RBC 3.82 L (4.7-6.1) M/uL Hgb 11.4 L (14.0-18.0) g/dL Hct 34.5 L (42-52) % MCV 90.3 (80-100) fL MCH 29.8 (25-34) pg MCHC 33.0 (32-36) g/dL RDW Std Deviation 42.5 (36.4-46.3) fL RDW Coeff of Pao 13.0 (11.5-14.5) % Plt Count 309 (130-400) K/uL MPV 9.0 (7.4-10.4) fL Immature Gran % (Auto) 0.9 % Neut % (Auto) 73.4 % Lymph % (Auto) 15.5 % [place] % (Auto) 7.6 % Eos % (Auto) 2.3 % Baso % (Auto) 0.3 % Neut # (Auto) 5.86 (1.4-6.5) K/uL Lymph # (Auto) 1.24 (1.2-3.4) K/uL [place] # (Auto) 0.61 H (0.11-0.59) K/uL Eos # (Auto) 0.18 (0-0.5) K/uL Baso # (Auto) 0.02 (0-0.2) K/uL Immature Gran # (Auto) 0.07 H (0.00-0.02) K/uL Sodium 139 (136-145) mmol/L Potassium 3.8 (3.5-5.1) mmol/L Chloride 109 H (98-107) mmol/L Carbon Dioxide 23 (21-32) mmol/L Anion Gap 7 (3-11) BUN 10 (6-23) mg/dl Creatinine 0.80 (0.6-1.4) mg/dl Est Cr Clr Drug Dosing 116.3 ml/min Est GFR ( Amer) 119.9 ml/min Est GFR (Non-Af Amer) 103.4 ml/min BUN/Creatinine Ratio 12.5 (10-20) Glucose 88 (70-99(Fasting)) mg/dl Calcium 8.5 (8.5-10.1) mg/dl Ionized Calcium 1.16 (1.12-1.32) mmol/L
[2022-01-21] MEDS: metroNIDAZOLE 500 MG TAB PO SCH ×2 (00:34→08:32)
[2022-01-21] MEDS: CIPROFLOXACIN / D5W 400 MG/200 ML BAG IV SCH (06:06)
[2022-01-21 06:45] LABS: Basophils # (auto) 0.03 K/uL (0-0.2); Basophils % (auto) 0.4 %; Eosinophils # (auto) 0.25 K/uL (0-0.5); Eosinophils % (auto) 3.2 %; Hematocrit (blood only) 34.7 % (42-52); Hemoglobin 11.9 g/dL (14.0-18.0); Immature Granulocytes # (auto) 0.08 K/uL (0.00-0.02); Lymphocytes # (auto) 1.61 K/uL (1.2-3.4); Lymphocytes % (auto) 20.5 %; Mean Corpuscular Hemoglobin 30.2 pg (25-34); Mean Corpuscular Hgb Conc 34.3 g/dL (32-36); Mean Corpuscular Volume 88.1 fL (80-100); Mean Platelet Volume 8.9 fL (7.4-10.4); Monocytes # (auto) 0.71 K/uL (0.11-0.59); Neutrophils # (auto) 5.17 K/uL (1.4-6.5); Neutrophils % (auto) 65.9 %; Platelet Count 314 K/uL (130-400); RDW Coefficient of Variation 13.1 % (11.5-14.5); RDW Standard Deviation 42.3 fL (36.4-46.3); Red Blood Count 3.94 M/uL (4.7-6.1); White Blood Count 7.85 K/uL (4.8-10.8)
--- NOTE | 2022-01-21 07:14 | Hospitalist Progress Note ---
Date of Service January 21, 2022 Assessment & Plan (1) Diverticulitis: Plan: 51yo male with a history of Crohn's and multiple episodes of SBO presents with a four-day history of LLQ abdominal pain, nausea, and bloating, with imaging findings consistent with diverticulitis. Diverticulitis: Presented to the ER with worsening abdominal pain, N/V. CT abdomen/pelvis showed acute distal descending/proximal sigmoid diverticulitis, with adjacent gas and fluid collection (contained perforation vs. developing abscess). Continue Cipro/Flagyl, currently on day 4 of antibiotic therapy. Continue through to 01/26 for 10 days of treatment. Full liquid diet this morning with advance diet slowly as tolerated. Low threshold for reimaging if patient worsens clinically. Tylenol as needed for pain, Zofran as needed for nausea. Crohn's disease: Continue mesalamine. Code Status: FULL CODE FEN: full liquid diet DVT ppx: SCDs with ambulation encouraged; low risk of DVT Dispo: Med/Surg Admission and Anticipated Discharge Date Admission Date: January 17, 2022 Results & Data Results & Data ([facility]) Vital Signs (Past 12 Hours) Vital Signs Temp Pulse Resp BP Pulse Ox 01/20/22 22:58 37.3 C 79 16 113/76 97
[2022-01-21 08:30] VITALS: PULSE 77; TEMP 98.4; O2SAT 98
[2022-01-21] MEDS: MESALAMINE 1.2 GM PO SCH (08:32)
--- NOTE | 2022-01-21 12:04 | Discharge Summary ---
Date of Service January 21, 2022 Admission HPI Per Admitting Provider 51yo M w/ hx of Crohn's who presents to the ER with acute diverticulitis. Has had Crohn's diagnosis for >10 years, controlled with mesalamine and diet. About 1 1/2 years ago, he had several episodes of SBO that were all treated conservatively with low fiber diet and just watching what he ate. He was doing well until Saturday when they had family over and he had a large amount of food. He reports he woke up early in the morning with pain in the LLQ. The pain was associated with a "tight" or bloating sensation. He got up, walked around, and tried to massage the area which all helped slightly. He then had several bowel movements over the course of the day. He reports they ranged from solid/normal to fairly liquidy bowel movements. He denies any hematochezia or melena. No emesis. Minimal nausea. He also notes some subjective fevers/chills at home, but no temperature. He denies any chest pain, shortness of breath, changes in sensation/strength, denies any urinary changes. Admission Exam Per Admitting Provider Constitutional: WD/WN, vitals as above Eyes: EOM intact bilaterally; no conjunctival abnormality ENMT: external ear and nose normal, oropharynx normal Neck: trachea midline, no thyromegaly normal visual inspection Respiratory: normal respiratory effort, lungs clear to auscultation no respiratory distress Cardiovascular: RRR, no murmur, no edema Gastrointestinal (Abdomen): Inspection/Auscultation: abdomen normal to inspection; abdomen not distended Percussion/Palpation: + abdomen tender (LLQ) and abdomen soft; no guarding and abdomen not rigid Musculoskeletal: no cyanosis or clubbing, extremities motor strength 5/5 Skin: no rashes, warm and dry Neurologic: moves all extremities and awake Psychiatric: Orientation: alert, oriented to person and cooperative Principal Diagnosis diverticulitis Discharge Exam Constitutional WD/WN, vitals as above Respiratory normal respiratory effort, lungs clear to auscultation Cardiovascular RRR, no murmur, no edema Gastrointestinal (Abdomen) normal bowel sounds, soft, nontender, no hepatosplenomegaly Skin no rashes, warm and dry Psychiatric A+Ox3, euthymic affect Discharge Data Allergies Allergy/AdvReac Type Severity Reaction Status Date / Time Penicillins Allergy ALL Verified 01/17/22 17:28 SIMILAR ANTIBIOTICS--HIVES Consultations 01/17/22 18:37 ED Decision to Admit Stat 01/17/22 21:29 Consult Gastroenterology Routine Consult General Surgery Routine Ordered Studies 01/17/22 16:04 CT abd pelvis IV con only Stat Hospital Course (1) Diverticulitis: 51yo male with a history of Crohn's and multiple episodes of SBO admitted for diverticulitis. Diverticulitis: Presented to the ER with worsening abdominal pain, N/V. CT abdomen/pelvis showed acute distal descending/proximal sigmoid diverticulitis, with adjacent gas and fluid collection (contained perforation vs. developing abscess). Continue Cipro/Flagyl, to complete on 01/26 for 10 total days of treatment. For discharge today with low fiber diet, GI follow up for colonoscopy in 6-8 weeks. Crohn's disease: Continue mesalamine. Dispo: home Total Time Total Time Spent Total Time Spent (In Minutes): >30 minutes spent on discharge planning including chart review, patient discussion, and rounding. Discharge Plan Discharge Items Patient Disposition: Home - Self-Care Reason For Visit: DIVERTICULITIS Discharge Diagnosis: diverticulitis Condition on Discharge: Fair Activity: Per Instructions section Non-emergency contact: Primary Care Provider and Spout Tender Call non-emergency contact if: you have any medication questions and your symptoms worsen Follow-up/Referrals: Sandoval Kaur [Physician] - Park Donald [Primary Care Provider] - Diet: Low Fiber Addtl Attending Provider Instructions: You were admitted to the hospital for an ileus. Your diet was decreased to liquid items, and slowly increased to normal foods. Since you tolerated this and your bowels started to move, you were felt to be safe for discharge home. Our Gastroenterologists saw you and recommend a repeat colonoscopy in 6-8 weeks from discharge to evaluate your colon. Moving forward, you should try to adhere to a low fiber diet. You should have follow up with your primary care doctor within 1 week of discharge. You will be discharged on two antibiotics, ciprofloxacin and metronidazole. Cipro is one tablet every 12 hours. Metronidazole is one tablet every 8 hours. You will have 6 more days of these medications. Please seek urgent medical attention if your pain is getting worse, or you have chest pain or trouble breathing. Pending Studies at Discharge: No Stand-Alone Forms: My [facility], Smoking Cessation Medications and DC Order Prescriptions: New metronidazole 500 mg Tablet 500 mg PO Q8H 6 Days Qty: 18 RF: 0 ciprofloxacin HCl [Cipro] 500 mg tablet 500 mg PO BID 6 Days Qty: 12 RF: 0 Continued sodium chloride [Ismael 128] 5 % Drops 1 drp OPHTHALMIC (EYE) DIRECTED RF: 0 ketoconazole 2 % shampoo 1 applic TOPICAL DIRECTED RF: 0 mesalamine 1.2 gram tablet,delayed release (DR/EC) 2.4 g PO DAILY RF: 0 Discharge Orders: Discharge Order (Routine); Ordered 01/21/22 Ordered By: Radha Butler Admission Data Admit Date/Time: 01/17/22 19:11 Attending Provider: Paul Castellanos Admit Provider: Morgan Dozier Primary Care Provider: Park Donald Other Providers: Morgan Dozier ; Sandoval Kaur ; Cesario Kovacs Other Interventions: Discharge Summary Assessment (RN) Last Done: 01/21/22 12:04 Supervising Physician Co-Signing Physician Notes Attending attestation Pt seen and examined in concert with Dr. Butler. In agreement with the documented findings as noted in the resident documentation with any exceptions or additions as noted here. Single, seconds long flare of LLQ pain overnight approx 1 hour following meal which has resolved and not recurred. Tolerating low fiber diet without n/v/d/c or pain. On examination, S1/S2 nl RRR no MCG. CTAB. Abd NT/ND BS+ve Diverticulitis - to complete course of cipro/flagyl, encourage good hydration and careful PO intake Crohn's disease - continue mesalamine and follow up with GI as scheduled. Else see resident documentation as noted. Total attending time spent on this patient's care on the day of discharge: 35 minutes. Resident Activity Tracking Resident Involvement: Resident Care Provided Care Provided: Adult Hospital Medicine
[2022-01-21 12:05] VITALS: BP 129/82
--- NOTE | 2022-01-21 12:26 | Surgery Progress Note ---
Date of Service January 21, 2022 Assessment & Plan (1) Colonic diverticular abscess: Plan: Tolerating regular diet. Denies any further pain. May be discharged home today from the surgical perspective. Admission and Anticipated Discharge Date Admission Date: January 17, 2022 Subjective Doing well. Denies any pain. Tolerating diet. Denies any other complaints Physical Exam Constitutional: WD/WN, vitals as above Gastrointestinal (Abdomen): Inspection/Auscultation: abdomen normal to inspection; abdomen not distended Percussion/Palpation: abdomen soft; abdomen nontender, no guarding and abdomen not rigid Skin: no rashes Neurologic: moves all extremities Psychiatric: A+Ox3, euthymic affect Results & Data ([facility]) Vital Signs (Past 12 Hours) Vital Signs Temp Pulse Resp BP BP Pulse Ox 01/21/22 12:04 36.9 C 77 18 121/80 129/82 98 01/21/22 08:29 36.9 C 77 18 121/80 98
== END 2022-01-21 12:25 | disposition home or self-care (01) | DRG 392 ==
LOC: ED 15:17 → 3N 19:11 → SUATTDRO 19:11 → 3N 21:10

== ENCOUNTER 2023-04-05 03:04 | Observation (INO) ==
--- NOTE | 2023-04-05 03:26 | Emergency Department Note ---
History of Present Illness General Chief complaint: Chest Pain Stated complaint: TIGHTNESS IN CHEST Time Seen by Provider: 04/05/23 03:18 History of Present Illness Maximum Pain Intensity: 2 This 53-year-old male patient presents to the emergency department with his for evaluation of chest pain. He states that this is the third time in the past 4 days that he has woken up with heat and pain on the right side of his chest rating down to his bellybutton. Initially the pain seemed like heartburn the first night. He took antacids and slept on the recliner. The next day he felt tired, but thought it was because of not sleeping well. The next night while he was sleeping, he woke up to a pulling pressure and pain in his chest along with heartburn. Last night he slept good without the chest pain. This morning around 2 am he woke up with the sharp substernal and right sided chest pain that radiated down to his belly button and just didn't feel right. He rates the pain as sharp and 2/10. Still has the chest pain, but denies the abdominal pain. Over the past 1.5 months his legs have felt heavy, but no pain in his legs or calves. Has also had pain in his middle back intermittently that felt like muscle spasms. No SOB with the chest pain. Has nausea with the symptoms, but no vomiting. No abdominal pain. No fevers, cough, or URI symptoms. History of Crohn's disease and diverticulitis. He is s/p CCY. Denies any diarrhea and states that his bowels are actually more formed than they typically are from his Crohn's disease. He stopped taking mesalamine for his Crohn's disease in Oct or November 2022. On his last f/u with GI, they decided to stop the mesalamine b/c his colorectal surgeon thought that his mild Crohn's disease may have actually been secondary to early diverticulitis. He took 81 mg ASA tonight around 9 pm. No previous heart problems per patient. Has not had a cardiac workup. Maternal grandmother of DC at 67 y/o. He had partial colectomy and CCY in Aug 2022. Otherwise, the patient denies recent long car or plane rides or recent injury/trauma/surgery. Denies any personal or family history of blood clots or bleeding disorders. Denies any hormonal medication use. Denies any hemoptysis. Home Medications Medication Instructions Recorded Confirmed Type ketoconazole 2 % shampoo 1 applic topical DIRECTED 01/17/22 01/17/22 History mesalamine 1.2 gram tablet,delayed 2.4 g PO DAILY 01/17/22 01/17/22 History release sodium chloride 5 % eye drops 1 drp ophthalmic (eye) DIRECTED 01/17/22 01/17/22 History (Ismael 128) Allergies Allergy/AdvReac Type Severity Reaction Status Date / Time Penicillins Allergy ALL Verified 01/17/22 17:28 SIMILAR ANTIBIOTICS--HIVES Past Med/Surg History Medical History (Updated 04/05/23 @ 09:31 by Aleah Fernandez PA-C) Crohn's disease Diverticulitis Surgical History (Updated 04/05/23 @ 06:17 by Parviz Pulliam MD) H/O: vasectomy History of partial colectomy Family History Brother Crohn's disease Social History Smoking Status: Never smoker Hx Alcohol Use: Yes Alcohol type: beer, wine and hard liquor Hx Substance Use: No Preferred Language: Hebrew Communication Ability: Effective Control Room Operator Required: No Beliefs That Will Affect Care: None Current Living Situation: Spouse Feels Safe at Home: Yes Assistive Devices: None and Glasses Review of Systems See HPI for pertinent positives & negatives. Physical Exam Vital Signs Vital Signs - 24 hr 04/05/23 03:08 04/05/23 03:42 04/05/23 05:34 Temperature 36.7 C Temperature Source Temporal Artery Scan Pulse Rate 77 Pulse Rate [Finger] 85 Respiratory Rate 18 18 Respiratory Effort / Characteristics Non-Labored Respiratory Depth Normal Blood Pressure 157/95 H Blood Pressure [Right Arm] 131/97 Blood Pressure Mean 115 Blood Pressure Mean [Right Arm] 108 Pulse Oximetry 99 99 99 Oxygen Delivery Method Room Air Room Air Room Air Sepsis Recent Fever Within 48 Hours No Sepsis New/Unexplained Change in Mental Status No Sepsis Action Taken by Nursing No Action Required 04/05/23 03:15 Temperature Temperature Source Pulse Rate 65 Pulse Rate [Finger] Respiratory Rate Respiratory Effort / Characteristics Respiratory Depth Blood Pressure Blood Pressure [Right Arm] Blood Pressure Mean Blood Pressure Mean [Right Arm] Pulse Oximetry Oxygen Delivery Method Sepsis Recent Fever Within 48 Hours Sepsis New/Unexplained Change in Mental Status Sepsis Action Taken by Nursing VITALS: Vitals are noted on the nurse's note and reviewed by myself. GENERAL: Non toxic, no acute distress, non-diaphoretic. SKIN: Capillary refill <2 sec. EYES: PERRLA. EOMI. Conjunctivae without injection, sclerae without icterus. NOSE: Patent without discharge. MOUTH: Mucous membranes moist. Uvula midline. Airway patent. NECK: Supple without nuchal rigidity. HEART: Regular rate and rhythm without murmurs gallops or rubs. LUNGS: Clear to auscultation bilaterally without wheezes, rales or rhonchi. No retractions or accessory muscle use. No chest wall tenderness. ABDOMEN: Positive bowel sounds x 4. Normal tympanic percussion. Soft, nontender, without masses or organomegaly. Arce sign negative. No guarding or rebound tenderness. No focal RLQ or LLQ tenderness. MUSCULOSKELETAL: No gross musculoskeletal defects. Bilateral calves are nonte nder to palpation. Negative Homans' sign. Peripheral pulses 2+ and equal in the bilateral upper and lower extremities. NEURO: Patient was alert and oriented to person place and time. No focal neuro logical deficits. Course Administered Medications Potassium Chloride/Sodium Chloride (Normal Saline W/20 Meq Kcl) 20 meq in 1,000 mls @ 100 mls/hr IV .Q10H LEANN Stop: 04/05/23 17:32 Last Admin: 04/05/23 08:33 Dose: 100 mls/hr Documented By: Famotidine 20 mg/ Syringe 5 mls @ 2.5 mls/min IV Q12 LEANN Stop: 05/05/23 08:59 Last Admin: 04/05/23 08:40 Dose: 2.5 mls/min Documented By: Discontinued Medications Aspirin (Aspirin Chew 324 Mg) 324 mg PO NOW STA Stop: 04/05/23 03:41 Last Admin: 04/05/23 04:00 Dose: 324 mg Documented By: PUNEET Sodium Chloride (Nss) 500 mls @ 999 mls/hr IV .Q31M STA Stop: 04/05/23 04:10 Last Infusion: 04/05/23 04:37 Dose: 0 mls/hr Documented By: Admin: 04/05/23 04:01 Dose: 999 mls/hr Documented By: PUNEET Famotidine (Pepcid 20mg Iv Push) 20 mg in 5 mls @ 2.5 mls/min IV NOW STA Stop: 04/05/23 04:42 Last Admin: 04/05/23 04:48 Dose: 2.5 mls/min Documented By: PUNEET Medical Decision Making Differential Diagnosis Differential diagnosis includes angina, DC, pericarditis, myocarditis, aortic dissection, pleurisy, pneumothorax, PE, pneumonia, pneumomediastinum, esophagitis, esophageal spasm, GERD, perforated esophagus, perforated duodenal/gastric ulcer, pancreatitis, cholecystitis, costochondritis, musculoskeletal, bronchitis, URI, or others. Laboratory Data Attestation: I reviewed the patient's lab results. 04/05/23 03:55 04/05/23 03:55 Lab Results 04/05/23 04/05/23 04/05/23 Range/Units 03:55 03:55 03:55 WBC 9.08 (4.8-10.8) K/ul RBC 4.84 (4.70-6.10) M/uL Hgb 14.3 (14.0-18.0) g/dl Hct 42.3 (42.0-52.0) % MCV 87.4 (80.0-100.0) fL MCH 29.5 (25.0-34.0) pg MCHC 33.8 (32.0-36.0) g/dL RDW Std Deviation 40.5 (36.4-46.3) fL RDW Coeff of Pao 12.8 (11.5-14.5) % Plt Count 306 (130-400) K/uL MPV 9.4 (9.4-12.4) fL Immature Gran % (Auto) 0.3 % Neut % (Auto) 60.2 % Lymph % (Auto) 27.8 % [place] % (Auto) 7.6 % Eos % (Auto) 3.2 % Baso % (Auto) 0.9 % Neut # (Auto) 5.47 (1.40-6.50) K/uL Lymph # (Auto) 2.52 (1.2-3.4) K/uL [place] # (Auto) 0.69 H (0.11-0.59) K/uL Eos # (Auto) 0.29 (0-0.50) K/uL Baso # (Auto) 0.08 (0-0.2) K/uL Immature Gran # (Auto) 0.03 (0.01-0.20) K/uL PT 11.0 (9.0-12.0) Seconds INR 1.0 (0.9-1.1) APTT 26.9 (21.0-31.0) Seconds PTT Ratio 1.0 D-Dimer 210 (0-500) ug/L FEU Sodium 139 (136-145) mmol/L Potassium 3.7 (3.5-5.1) mmol/L Chloride 104 (98-107) mmol/L Carbon Dioxide 27 (21-32) mmol/L Anion Gap 8 (3-11) BUN 20 (6-23) mg/dl Creatinine 0.98 (0.6-1.4) mg/dl Est Cr Clr Drug Dosing 92.8 ml/min Est GFR ( Amer) 101.6 ml/min Est GFR (Non-Af Amer) 87.7 ml/min BUN/Creatinine Ratio 20.4 H (10-20) Glucose 90 (70-99(Fasting)) mg/dl Calcium 10.0 (8.6-10.3) mg/dl Total Bilirubin 0.8 (0.2-1.0) mg/dl AST 22 (13-39) U/L ALT 26 (7-52) U/L Alkaline Phosphatase 53 (34-104) U/L Troponin I High Sens 2.8 (0-20) pg/ml Total Protein 8.4 H (6.0-8.3) gm/dl Albumin 4.5 (3.4-5.0) gm/dl Globulin 3.9 (2.5-4.0) gm/dl Albumin/Globulin Ratio 1.2 (0.9-2) Lipase 27 (11-82) U/L Urine Color Urine Appearance (Clear) Urine pH (4.5-7.5) Ur Specific [place] (1.000-1.030) Urine Protein (Negative) Urine Glucose (UA) (Negative) Urine Ketones (Negative) Urine Blood (Negative) Urine Nitrite (Negative) Urine Bilirubin (Negative) Urine Urobilinogen (Negative) Ur Leukocyte Esterase (Negative) SARS-CoV-2, RNA, NAAT (NEGATIVE) 04/05/23 04/05/23 Range/Units 03:55 03:55 WBC (4.8-10.8) K/ul RBC (4.70-6.10) M/uL Hgb (14.0-18.0) g/dl Hct (42.0-52.0) % MCV (80.0-100.0) fL MCH (25.0-34.0) pg MCHC (32.0-36.0) g/dL RDW Std Deviation (36.4-46.3) fL RDW Coeff of Pao (11.5-14.5) % Plt Count (130-400) K/uL MPV (9.4-12.4) fL Immature Gran % (Auto) % Neut % (Auto) % Lymph % (Auto) % [place] % (Auto) % Eos % (Auto) % Baso % (Auto) % Neut # (Auto) (1.40-6.50) K/uL Lymph # (Auto) (1.2-3.4) K/uL [place] # (Auto) (0.11-0.59) K/uL Eos # (Auto) (0-0.50) K/uL Baso # (Auto) (0-0.2) K/uL Immature Gran # (Auto) (0.01-0.20) K/uL PT (9.0-12.0) Seconds INR (0.9-1.1) APTT (21.0-31.0) Seconds PTT Ratio D-Dimer (0-500) ug/L FEU Sodium (136-145) mmol/L Potassium (3.5-5.1) mmol/L Chloride (98-107) mmol/L Carbon Dioxide (21-32) mmol/L Anion Gap (3-11) BUN (6-23) mg/dl Creatinine (0.6-1.4) mg/dl Est Cr Clr Drug Dosing ml/min Est GFR ( Amer) ml/min Est GFR (Non-Af Amer) ml/min BUN/Creatinine Ratio (10-20) Glucose (70-99(Fasting)) mg/dl Calcium (8.6-10.3) mg/dl Total Bilirubin (0.2-1.0) mg/dl AST (13-39) U/L ALT (7-52) U/L Alkaline Phosphatase (34-104) U/L Troponin I High Sens (0-20) pg/ml Total Protein (6.0-8.3) gm/dl Albumin (3.4-5.0) gm/dl Globulin (2.5-4.0) gm/dl Albumin/Globulin Ratio (0.9-2) Lipase (11-82) U/L Urine Color Yellow Urine Appearance Clear (Clear) Urine pH 6.0 (4.5-7.5) Ur Specific [place] 1.014 (1.000-1.030) Urine Protein Negative (Negative) Urine Glucose (UA) Negative (Negative) Urine Ketones Trace H (Negative) Urine Blood Negative (Negative) Urine Nitrite Negative (Negative) Urine Bilirubin Negative (Negative) Urine Urobilinogen Negative (Negative) Ur Leukocyte Esterase Negative (Negative) SARS-CoV-2, RNA, NAAT NEGATIVE (NEGATIVE) Imaging Data Attestation: I personally reviewed and interpreted this imaging study as follows: My Impression: Chest x-ray was interpreted by myself as negative for acute cardiopulmonary etiology. Radiology report still pending. Radiologist's Impression: Chest X-Ray 04/05/23 03:41 XR chest 1V portable HISTORY: Right-sided chest pain. COMPARISON: None. FINDINGS: The lungs are clear. Cardiac silhouette is normal in size. No pleural effusions. No pneumothorax. IMPRESSION: No acute process. ACT 112: Negative or not required by law. Electronically signed by: Kodak Hodge M.D. 04/05/2023 8:16 AM Abdomen/Pelvis CT 04/05/23 05:56 CT OF THE ABDOMEN AND PELVIS WITHOUT CONTRAST CLINICAL HISTORY: Epigastric and substernal chest pain. COMPARISON STUDY: CT of the abdomen and pelvis April 25, 2022 and MRCP May 03, 2022. TECHNIQUE: Axial images of the abdomen and pelvis were obtained without IV contrast. Images were reviewed in the axial, sagittal, and coronal planes. Automated exposure control was utilized for the study. A dose lowering technique was utilized adhering to the principles of ALARA. FINDINGS: Lung bases are unremarkable. No pneumatosis, free air or portal venous gas is present. A small amount of pneumobilia is likely related to previous sphincterotomy. Moderate dilatation of the common bile duct is again noted. This was shown on prior CT. Innumerable hepatic cysts are again noted. There is no pancreatic ductal dilatation. The gallbladder is surgically absent. Unenhanced images of the spleen, adrenal glands and kidneys are unremarkable. There is no h ydronephrosis. The appendix is unremarkable. Sigmoid resection is noted. There is no evidence for a bowel obstruction. There is colonic diverticulosis without evidence for acute diverticulitis. No fluid collection is present. There is no ascites. There are no acute fractures. IMPRESSION: 1. No urinary calculi or hydronephrosis. 2. No acute process within the abdomen or pelvis on unenhanced exam. 3. No bowel obstruction. Colonic diverticulosis. No evidence for acute diverticulitis. 4. Dilated common bile duct, similar to slightly decreased since prior CT and MRCP. This could be correlated with liver function tests. ACT 112: Negative or not required by law. Electronically signed by: Roberto Espino M.D. 04/05/2023 7:07 AM MDM Narrative I examined the patient. An IV lock was placed and labs were drawn. He was given 500 mL normal saline solution bolus. He was given aspirin 324 mg p.o. chewed. He was given nitroglycerin 0.4 mg sublingual with resolution of his chest pain. He was then given Pepcid 20 mg IV with resolution of the heartburn symptoms. EKG was interpreted by myself as normal sinus rhythm at 66 bpm with no acute ST or T wave changes. Continuous conveyor monitor: Order was placed for continuous conveyor monitor. Patient was placed on the conveyor monitor and continuous pulse ox. Patient was noted to be in normal sinus rhythm at an initial rate of 70 bpm per my interpretation. CBC was normal. Coags were normal. CMP essentially normal. Lipase normal. Urinalysis without evidence for UTI. COVID-negative. High-sensitivity troponin x2 were normal. D-dimer was normal. Chest x-ray was interpreted by myself as negative for acute cardiopulmonary etiology. Radiology report still pending. I had a meaningful discussion about this patient with Dr. Kim who agrees with my assessment and the treatment plan. Given the patient's recurring chest pain that has been waking him from sleep, is sometimes worse with exertion, and was resolved with nitroglycerin, we feel the patient requires admission for further evaluation and treatment. I spoke with the on-call hospitalist who agreed to admit the patient. Please refer to their dictation for further details. The patient was admitted in stable condition. Impression & Plan Chest pain Discharge Plan Visit Data Chief Complaint: Chest Pain Stated Complaint: TIGHTNESS IN CHEST ED Provider: Celia Kim ED Midlevel Provider: Aleah Fernandez Discharge Problem: Chest pain Patient Disposition: Admitted As Inpatient Condition: Good Discharge Instructions Interventions: ED Discharge Assessment Last Done: 04/05/23 07:20
[2023-04-05] MEDS ORDERED: NITROGLYCERIN SL 0.4 MG/TAB TAB SL PRN (03:40)
[2023-04-05] MEDS ORDERED: ASPIRIN CHEW 324 MG PO STA (03:40)
[2023-04-05] MEDS ORDERED: SODIUM CHLORIDE 0.9% 500 ML IV STA (03:40)
[2023-04-05 04:05] LABS: Appearance Urine Clear (Clear); Bilirubin Urine Negative (Negative); Blood Urine Negative (Negative); Color Urine Yellow; Glucose Urine UA Negative (Negative); Ketones Urine Trace (Negative); Leukocyte Esterase Urine Negative (Negative); Nitrite Urine Negative (Negative); Protein Urine Negative (Negative); Specific Gravity Urine 1.014 (1.000-1.030); Urobilinogen Urine Negative (Negative)
[2023-04-05 04:10] LABS: Basophils # (auto) 0.08 K/uL (0-0.2); Basophils % (auto) 0.9 %; Eosinophils # (auto) 0.29 K/uL (0-0.50); Eosinophils % (auto) 3.2 %; Hematocrit (blood only) 42.3 % (42.0-52.0); Hemoglobin 14.3 g/dl (14.0-18.0); Immature Granulocytes # (auto) 0.03 K/uL (0.01-0.20); Immature Granulocytes % (auto) 0.3 %; Lymphocytes # (auto) 2.52 K/uL (1.2-3.4); Lymphocytes % (auto) 27.8 %; Mean Corpuscular Hemoglobin 29.5 pg (25.0-34.0); Mean Corpuscular Hgb Conc 33.8 g/dL (32.0-36.0); Mean Corpuscular Volume 87.4 fL (80.0-100.0); Mean Platelet Volume 9.4 fL (9.4-12.4); Monocytes # (auto) 0.69 K/uL (0.11-0.59); Monocytes % (auto) 7.6 %; Neutrophils # (auto) 5.47 K/uL (1.40-6.50); Neutrophils % (auto) 60.2 %; Platelet Count 306 K/uL (130-400); RDW Coefficient of Variation 12.8 % (11.5-14.5); RDW Standard Deviation 40.5 fL (36.4-46.3); Red Blood Count 4.84 M/uL (4.70-6.10); White Blood Count 9.08 K/ul (4.8-10.8)
[2023-04-05 04:28] LABS: Albumin Globulin Ratio 1.2 (0.9-2); Albumin Level 4.5 gm/dl (3.4-5.0); BUN Creatinine Ratio 20.4 (10-20); Bilirubin,Total 0.8 mg/dl (0.2-1.0); Creatinine Clr Calc Pharmacy 92.8 ml/min; Est GFR (African American) 101.6 ml/min; Est GFR (Non-African American) 87.7 ml/min; Globulin 3.9 gm/dl (2.5-4.0); Potassium 3.7 mmol/L (3.5-5.1); Total Protein 8.4 gm/dl (6.0-8.3)
[2023-04-05 04:34] LABS: Troponin I High Sensitivity 2.8 pg/ml (0-20)
[2023-04-05] MEDS ORDERED: FAMOTIDINE 20MG IV PUSH 20 MG/5 ML SYR IV STA (04:41)
[2023-04-05 04:51] LABS: D Dimer 210 ug/L FEU (0-500); Partial Thromboplastin Time 26.9 Seconds (21.0-31.0)
--- NOTE | 2023-04-05 06:03 | History & Physical Report ---
Date of Service April 05, 2023 Assessment & Plan (1) Epigastric pain: (2) Chest pain: (3) History of partial colectomy: (4) Crohn's disease: (5) Diverticulitis: Plan atypical chest pain- Plus minus epigastric pain Maternal grandmother with history of heart disease The patient will be admitted to telemetry for serial cardiac enzymes, serial EKG's, cardiac rhythm monitoring and a 2-D echocardiogram with Dopplers. Epigastric pain/chest pain- With history of Crohn's disease, and initial symptoms aggravated by food intake, to include in the differential: Esophagitis, esophageal ulcer, gastritis, gastric ulcer, duodenitis, duodenal ulcer, Crohn's flare. N.p.o. for now Placed on famotidine 20 mg IV every [address] scan abdomen and pelvis without contrast Patient has not been taking mesalamine for a number of months Crohn's disease/history of diverticulitis/status partial colectomy- No recent flareups Work-up as noted above History of Present Illness Chief Complaint: the patient presents to the emergency department with his , with complaint of epigastric to sternal and upper chest pain and again rating back to the epigastrium over the past 4 evenings, with the first occurring after having had chicken at a dinner. Primary Care Provider: Park Donald The patient is a 53-year-old male with a past medical history including Crohn's, diverticulitis, status post partial colectomy with prophylactic cholecystectomy, who presents to the emergency department with 4 evenings of persistent and intermittent epigastric to chest and back burning sensation that what awakens him from sleep. With this fourth episode this past evening, he decided to come to the emergency department for assessment. He reports that the first few nights the symptoms felt like heartburn, however, the last 2 nights the feeling was different, and he became more concerned about possible heart issues. he did have some nausea with the symptoms, however he did not have any diarrhea or any vomiting. Allergies Allergy/AdvReac Type Severity Reaction Status Date / Time Penicillins Allergy ALL Verified 01/17/22 17:28 SIMILAR ANTIBIOTICS--HIVES Home Medications Medication Instructions Recorded Confirmed Type ketoconazole 2 % shampoo 1 applic topical DIRECTED 01/17/22 01/17/22 History mesalamine 1.2 gram tablet,delayed 2.4 g PO DAILY 01/17/22 01/17/22 History release sodium chloride 5 % eye drops 1 drp ophthalmic (eye) DIRECTED 01/17/22 01/17/22 History (Ismael 128) Past Med/Surg History Medical History (Updated 04/05/23 @ 06:17 by Parviz Pulliam MD) Crohn's disease Diverticulitis Surgical History (Updated 04/05/23 @ 06:17 by Parviz Pulliam MD) H/O: vasectomy History of partial colectomy Family History Brother Crohn's disease Social History Smoking Status: Never smoker Hx Alcohol Use: Yes Alcohol type: beer, wine and hard liquor Hx Substance Use: No Preferred Language: [place] [employer] Required: No Beliefs That Will Affect Care: None Current Living Situation: Spouse Feels Safe at Home: Yes Assistive Devices: None Review of Systems Review of Systems: The patient denies palpitations, cough, lower extremity swelling, sore throat, fevers, chills, sweats, vomiting, diarrhea , constipation, blood in urine or stool, dysuria, urinary frequency or urgency, lightheadedness, dizziness, headache, memory loss, loss of consciousness, rash, abnormal bruising or bleeding, imbalance, focal or generalized weakness, numbness or tingling in arms or legs, generalized arthralgias or myalgias, back or neck pain, or night sweats. The review of systems is otherwise negative other than for that already noted above, and at least 10 systems have been reviewed. Physical Exam Physical Exam: The patient is awake, alert and oriented 3, well developed and well nourished, normocephalic and atraumatic, lying in bed and in no acute distress. HEENT--PERRL, EOMI, mucous membranes and oropharynx Mildly dry Neck--supple. No JVD. No bruits. Thyroid normal, trachea midline, no adenopathy. Heart--normal S1 and S2. No murmurs, rubs or gallops. Lungs--clear bilaterally, no respiratory distress, no accessory muscle use. Abdomen--normal bowel sounds and soft. Nontender. Nondistended, no hernias or masses, no organomegaly. Extremities--no cyanosis or clubbing. No edema. Dermatologic--normal skin turgor, normal color, no abnormal lymph nodes, no rash. Neurologic--cranial nerves II through XII grossly intact. Rheumatologic--normal range of motion. Psychiatric--normal affect. Results & Data Results & Data Vital Signs (Past 12 Hours) Vital Signs Temp Pulse Pulse Resp BP BP Pulse Ox 04/05/23 03:15 65 04/05/23 05:34 85 18 131/97 99 04/05/23 03:42 99 04/05/23 03:08 36.7 C 77 18 157/95 H 99 O2 Del Method 04/05/23 03:15 04/05/23 05:34 Room Air 04/05/23 03:42 Room Air 04/05/23 03:08 Room Air Laboratory Results Laboratory Results WBC 9.08 K/ul (4.8-10.8) 04/05/23 03:55 RBC 4.84 M/uL (4.70-6.10) 04/05/23 03:55 Hgb 14.3 g/dl (14.0-18.0) 04/05/23 03:55 Hct 42.3 % (42.0-52.0) 04/05/23 03:55 MCV 87.4 fL (80.0-100.0) 04/05/23 03:55 MCH 29.5 pg (25.0-34.0) 04/05/23 03:55 MCHC 33.8 g/dL (32.0-36.0) 04/05/23 03:55 RDW Std Deviation 40.5 fL (36.4-46.3) 04/05/23 03:55 RDW Coeff of Pao 12.8 % (11.5-14.5) 04/05/23 03:55 Plt Count 306 K/uL (130-400) 04/05/23 03:55 MPV 9.4 fL (9.4-12.4) 04/05/23 03:55 Immature Gran % (Auto) 0.3 % 04/05/23 03:55 Neut % (Auto) 60.2 % 04/05/23 03:55 Lymph % (Auto) 27.8 % 04/05/23 03:55 [place] % (Auto) 7.6 % 04/05/23 03:55 Eos % (Auto) 3.2 % 04/05/23 03:55 Baso % (Auto) 0.9 % 04/05/23 03:55 Neut # (Auto) 5.47 K/uL (1.40-6.50) 04/05/23 03:55 Lymph # (Auto) 2.52 K/uL (1.2-3.4) 04/05/23 03:55 [place] # (Auto) 0.69 K/uL (0.11-0.59) H 04/05/23 03:55 Eos # (Auto) 0.29 K/uL (0-0.50) 04/05/23 03:55 Baso # (Auto) 0.08 K/uL (0-0.2) 04/05/23 03:55 Immature Gran # (Auto) 0.03 K/uL (0.01-0.20) 04/05/23 03:55 PT 11.0 Seconds (9.0-12.0) 04/05/23 03:55 INR 1.0 (0.9-1.1) 04/05/23 03:55 APTT 26.9 Seconds (21.0-31.0) 04/05/23 03:55 PTT Ratio 1.0 04/05/23 03:55 D-Dimer 210 ug/L FEU (0-500) 04/05/23 03:55 Sodium 139 mmol/L (136-145) 04/05/23 03:55 Potassium 3.7 mmol/L (3.5-5.1) 04/05/23 03:55 Chloride 104 mmol/L (98-107) 04/05/23 03:55 Carbon Dioxide 27 mmol/L (21-32) 04/05/23 03:55 Anion Gap 8 (3-11) 04/05/23 03:55 BUN 20 mg/dl (6-23) 04/05/23 03:55 Creatinine 0.98 mg/dl (0.6-1.4) 04/05/23 03:55 Est Cr Clr Drug Dosing 92.8 ml/min 04/05/23 03:55 Est GFR ( Amer) 101.6 ml/min 04/05/23 03:55 Est GFR (Non-Af Amer) 87.7 ml/min 04/05/23 03:55 BUN/Creatinine Ratio 20.4 (10-20) H 04/05/23 03:55 Glucose 90 mg/dl (70-99(Fasting)) 04/05/23 03:55 Calcium 10.0 mg/dl (8.6-10.3) 04/05/23 03:55 Total Bilirubin 0.8 mg/dl (0.2-1.0) 04/05/23 03:55 AST 22 U/L (13-39) 04/05/23 03:55 ALT 26 U/L (7-52) 04/05/23 03:55 Alkaline Phosphatase 53 U/L (34-104) 04/05/23 03:55 Troponin I High Sens 2.8 pg/ml (0-20) 04/05/23 03:55 Total Protein 8.4 gm/dl (6.0-8.3) H 04/05/23 03:55 Albumin 4.5 gm/dl (3.4-5.0) 04/05/23 03:55 Globulin 3.9 gm/dl (2.5-4.0) 04/05/23 03:55 Albumin/Globulin Ratio 1.2 (0.9-2) 04/05/23 03:55 Lipase 27 U/L (11-82) 04/05/23 03:55 Urine Color Yellow 04/05/23 03:55 Urine Appearance Clear (Clear) 04/05/23 03:55 Urine pH 6.0 (4.5-7.5) 04/05/23 03:55 Ur Specific [place] 1.014 (1.000-1.030) 04/05/23 03:55 Urine Protein Negative (Negative) 04/05/23 03:55 Urine Glucose (UA) Negative (Negative) 04/05/23 03:55 Urine Ketones Trace (Negative) H 04/05/23 03:55 Urine Blood Negative (Negative) 04/05/23 03:55 Urine Nitrite Negative (Negative) 04/05/23 03:55 Urine Bilirubin Negative (Negative) 04/05/23 03:55 Urine Urobilinogen Negative (Negative) 04/05/23 03:55 Ur Leukocyte Esterase Negative (Negative) 04/05/23 03:55 SARS-CoV-2, RNA, NAAT NEGATIVE (NEGATIVE) 04/05/23 03:55 Code Status & VTE Plan Code Status full code VTE Prophylaxis Plan VTE Prophylaxis will be ordered: Yes PG Care Time/CCT Total # of Minutes Spent Total Time Spent with Patient: Total time spent is greater than 50% in coordination of care (as documented) at patient's floor/unit and/or counseling patient: Coding Level of Care Code 42175 INT INP/OBS CARE 255MIN Diagnoses Epigastric pain R10.13 Chest pain R07.9 History of partial colectomy Z90.49 Crohn's disease K50.90 Diverticulitis K57.92
--- NOTE | 2023-04-05 07:10 | CT Scan Report ---
CT OF THE ABDOMEN AND PELVIS WITHOUT CONTRAST CLINICAL HISTORY: Epigastric and substernal chest pain. COMPARISON STUDY: CT of the abdomen and pelvis April 25, 2022 and MRCP May 03, 2022. TECHNIQUE: Axial images of the abdomen and pelvis were obtained without IV contrast. Images were revi ewed in the axial, sagittal, and coronal planes. Automated exposure control was utilized for the bishnu dy. A dose lowering technique was utilized adhering to the principles of ALARA. FINDINGS: Lung bases are unremarkable. No pneumatosis, free air or portal venous gas is present. A sm all amount of pneumobilia is likely related to previous sphincterotomy. Moderate dilatation of the co mmon bile duct is again noted. This was shown on prior CT. Innumerable hepatic cysts are again noted. There is no pancreatic ductal dilatation. The gallbladder is surgically absent. Unenhanced images of the spleen, adrenal glands and kidneys are unremarkable. There is no hydronephrosis. The appendix is unremarkable. Sigmoid resection is noted. There is no evidence for a bowel obstruction. There is col onic diverticulosis without evidence for acute diverticulitis. No fluid collection is present. There is no ascites. There are no acute fractures. IMPRESSION: 1. No urinary calculi or hydronephrosis. 2. No acute process within the abdomen or pelvis on unenhanced exam. 3. No bowel obstruction. Colonic diverticulosis. No evidence for acute diverticulitis. 4. Dilated common bile duct, similar to slightly decreased since prior CT and MRCP. This could be cor related with liver function tests. ACT 112: Negative or not required by law. Electronically signed by: Roberto Espino M.D. 04/05/2023 7:07 AM
[2023-04-05] MEDS ORDERED: ACETAMINOPHEN 325 MG TAB PO PRN (07:33)
[2023-04-05] MEDS ORDERED: NSS + 20MEQ KCL 20 MEQ/1,000 ML BAG IV SCH (07:33)
[2023-04-05] MEDS ORDERED: ONDANSETRON INJ 2 MG/ML 2 ML VIAL IV PRN (07:33)
--- NOTE | 2023-04-05 08:17 | XRay Report ---
XR chest 1V portable HISTORY: Right-sided chest pain. COMPARISON: None. FINDINGS: The lungs are clear. Cardiac silhouette is normal in size. No pleural effusions. No pneumot horax. IMPRESSION: No acute process. ACT 112: Negative or not required by law. Electronically signed by: Kodak Hodge M.D. 04/05/2023 8:16 AM
[2023-04-05] MEDS ORDERED: FAMOTIDINE 20 MG in SYRINGE 3 ML IV SCH (09:00)
[2023-04-05] MEDS ORDERED: PANTOprazole 40 MG TAB PO SCH (12:30)
--- NOTE | 2023-04-05 12:33 | Discharge Summary ---
Discharge Summary Date of Service April 05, 2023 Notes For Next Care Provider Medication Changes From Visit Protonix 40mg po qam x 1 month Admission HPI Per Admitting Provider The patient is a 53-year-old male with a past medical history including Crohn's, diverticulitis, status post partial colectomy with prophylactic cholecystectomy, who presents to the emergency department with 4 evenings of persistent and intermittent epigastric to chest and back burning sensation that what awakens him from sleep. With this fourth episode this past evening, he decided to come to the emergency department for assessment. He reports that the first few nights the symptoms felt like heartburn, however, the last 2 nights the feeling was different, and he became more concerned about possible heart issues. he did have some nausea with the symptoms, however he did not have any diarrhea or any vomiting. Principal Dx & Hospital Course #1 = Principal Diagnosis (1) Epigastric pain: Suspect gastritis cardiac workup negative CT abd/pel with known liver cysts and s/p cholecystectomy but nothing else came on after eating possibly undercooked chicken at a picnic, felt like severe heartburn much improved with starting IV pepcid and Protonix continue protonix 40mg daily x 1 month f/u with GI as an outpt (2) Chest pain: non cardiac, serial troponin negative, ECG normal, ECHO no wall motion abnormalities and preserved EF aortic root mildly dilated-needs to be followed as an outpt (3) Crohn's disease: quiescent at the moment, off mesalamine follows [facility] (4) Diverticulitis: s/p partial colectomy in Aug 2022 for this, doing well (5) Dilated aortic root: 4.5cm follow as outpt (6) Liver cyst: numerous, stable from previous, unclear etiology, f/u with GI (7) History of partial colectomy: Plan Dispo-doing very well, stable for dc to home Discharge Exam Constitutional WD/WN, vitals as above Respiratory normal respiratory effort, lungs clear to auscultation Cardiovascular RRR, no murmur, no edema Gastrointestinal (Abdomen) normal bowel sounds, soft, nontender, no hepatosplenomegaly Psychiatric A+Ox3, euthymic affect Updated Medication List Medication Instructions Recorded Confirmed Type ketoconazole 2 % shampoo 1 applic topical DIRECTED 01/17/22 01/17/22 History mesalamine 1.2 gram tablet,delayed 2.4 g PO DAILY 01/17/22 01/17/22 History release sodium chloride 5 % eye drops 1 drp ophthalmic (eye) DIRECTED 01/17/22 01/17/22 History (Ismael 128) pantoprazole 40 mg tablet,delayed 40 mg PO QAM #30 tabs 04/05/23 Rx release Hospital Stay Data Consultations 04/05/23 05:52 ED Decision to Admit Stat Procedures Performed ECHO Diagnostic Imagining Performed 04/05/23 05:56 CT Abd and Pelvis [CT abd pelvis wo con] Stat Pending Results Patient Have Any Pending Studies at Discharge: No Discharge Instructions Given to Patient (Per Discharging Provider) You were admitted with abdominal and back pains probably from gastritis or infl ammation of the stomach. This improved with starting antacids. Please continue taking Protonix once daily and follow up with Dr. Kaur within 2 weeks. You had a cardiac workup which was all normal. Your echocardiogram of the heart only showed a mildly dilated aorta which is something that should be followed over time through your PCP with echocardiograms. It is important to have good control of your blood pressure for this as well which you already have. Total Time Total Time Spent Total Time Spent (In Minutes): 35 min Coding Level of Care Code 14655 INP/OBS DISCH >30 MIN Diagnoses Epigastric pain R10.13 Chest pain R07.9 Chest pain type: unspecified Crohn's disease K50.90 Diverticulitis K57.92 Dilated aortic root I77.810 Liver cyst K76.89 History of partial colectomy Z90.49
--- NOTE | 2023-04-05 16:28 | XCELERA ---
[id number]
--- NOTE | 2023-04-06 06:50 | Electrocardiogram Report ---
Test Reason : Blood Pressure : / mmHG Vent. Rate : 066 BPM Atrial Rate : 066 BPM P-R Int : 140 ms QRS Dur : 096 ms QT Int : 380 ms P-R-T Axes : 017 003 057 degrees QTc Int : 398 ms Normal sinus rhythm Septal infarct , age undetermined Abnormal ECG No previous ECGs available Confirmed by Srinivas Ordoñez ([id number]) on 04/06/2023 6:50:20 AM Referred By: REFERRED SELF Confirmed By:Srinivas Ordoñez
== END 2023-04-05 17:35 | disposition home or self-care (01) ==
LOC: ED 03:04 → 2S 03:04 → SUATTDRO 06:02 → 2S 07:20